=== PATIENT | male | born 1950 | race Caucasian/White ===

== ENCOUNTER 2021-02-05 18:42 | Inpatient (IN) | payer OTHER ==
[~2021-02-05] VITALS: Ht 170.2 cm; Wt 66.7 kg
[2021-02-05 19:30] VITALS: BP 141/71
--- NOTE | 2021-02-05 19:30 | NUR ---
GPS ADMISSION NOTE, RECEIVED PATIENT FROM [facility] / [place]. PATIENT ARRIVED ON THIS UNIT AT 1930 VIA STRETCHER WITH 2 EMT ESCORTS. PATIENT ADMITTED ON A 5250 HOLD FOR GD. PER HOLD, PATIENT HAS BEEN OFF HIS MEDICATION AND IS DISPLAYING COGNITIVE IMPAIRMENT. PATIENT IS CONFUSED, DISORIENTED, AND CANNOT RECALL WHEN HE LAST ATE FOOD. PATIENT IS UNABLE TO VERBALIZE A PLAN FOR SELF CARE AT THIS TIME. THE 5150 WAS REVIEWED AND THE DOCUMENTATION IN THE 5250 HOLD APPEARS TO REFLECT THE PRESENTATION OF THE PATIENT. UPON FACE TO FACE ASSESSMENT PATIENT IS NOTED TO BEING CONFUSED, DISHEVELED, DISORGANIZED, ANXIOUS, UNCOOPERATIVE, AND NEEDS REDIRECTION. PATIENT IS CURRENTLY LYING IN BED AWAKE, HAS NO S/S OR COMPLAINTS OF PAIN. PATIENT IS DISPLAYING NO S/S OF APPARENT DISTRESS. PATIENT BREATHING IS UNLABORED WITH EQUAL RISE AND FALL OF THE CHEST. PATIENT IS ALERT AND ORIENTATED X 1 ON ROOM AIR. PATIENT ASSISTED WITH TURING AND REPOSITIONING Q2HR AND PRN FOR COMFORT AND CIRCULATION. PATIENT HAS NO NEEDS AT THIS TIME. PATIENT DENIES SUICIDE IDEATIONS AND HOMICIDAL IDEATIONS AT THIS TIME. PATIENT REFUSED TO SIGNS ANY PAPER WORK AND THINKS THIS IS ALL A MISTAKE. PATIENT ADVISED OF HIS HOLD AND PATIENT RIGHTS BOOKLET GIVEN. PATIENT IS UNDER THE PSYCHIATRIC CARE OF DR. REYNA AND THE MEDICAL CARE OF DR ZAMORA. PATIENT BELONGINGS WERE INVENTORIED AND CHECKED FOR CONTRABAND. ALL CONTRABAND REMOVED AND STORED IN PATIENT HALLWAY LOCKER. PATIENT ADVANCED DIRECTIVES PREFERENCE, IMMUNIZATIONS QUESTIONER, NECESSARY PAPERWORK COMPLETED. PATIENT ALLOWED PICTURES OF LEGS ONLY DURING SKIN ASSESSMENT. PATIENT ORIENTATED TO ROOM, FLOOR, AND STAFF WITH ALL QUESTIONS ANSWERED. PATIENT EDUCATED ON THE USE OF THE CALL JEFFERS. PATIENT BED SIDE RAILS ARE UP X 2 FOR SAFETY. PATIENT BED IS LOCKED, LOW AND I WILL CONTINUE TO MONITOR THIS PATIENT Q 15 MIN WITH THE HELP OF STAFF TO MAINTAIN SAFETY.
[2021-02-05 20:00] VITALS: BP 192/101
[2021-02-05] MEDS ORDERED: TAMS-12 PO (20:07)
[2021-02-05] MEDS ORDERED: AMLO-212 PO (20:08)
[2021-02-05] MEDS ORDERED: CLON0.3T PO (20:08)
[2021-02-05] MEDS ORDERED: CEPH500C2 PO (20:10)
[2021-02-05] MEDS ORDERED: MAG HYDROX/AL HYDROX/SIMETH 30 ML UDC PO PRN (21:00)
[2021-02-05] MEDS ORDERED: ACETAMINOPHEN 325 MG TABLET PO PRN (21:00)
[2021-02-05] MEDS ORDERED: MAGNESIUM HYDROXIDE 30 ML UDC PO PRN (21:00)
[2021-02-05] MEDS ORDERED: TEMAZEPAM 7.5 MG CAPSULE PO PRN (21:00)
[2021-02-05] MEDS ORDERED: BLOOD SUGAR DIAGNOSTIC 1 EACH STRIP IN ONE (22:00)
--- NOTE | 2021-02-05 22:23 | NUR ---
GPS RN NOTE, PATIENT REFUSED TO HAVE ACCU CHECK PERFORMED. OFFERED THREE TIMES AND STILL PATIENT REFUSED STATING, " NO I DON'T HAVE DIABETES ". EDUCATED PATIENT ON THE RISKS AND BENEFITS OF DOING ACCU CHECKS. WILL CONTINUE TO MONITOR THIS PATIENT WITH THE HELP OF STAFF.
[2021-02-05] MEDS: LORAZEPAM 0.5 MG TABLET PO PRN (22:26)
--- NOTE | 2021-02-05 22:26 | NUR ---
GPS RN NOTE, PATIENT HAS A COMPLAINT OF FEELING ANXIOUS AND IS REQUESTING ATIVAN AT THIS TIME. GAVE PATIENT ATIVAN 0.5MG PO Q6HR PRN ORDERED. WILL REASSESS FOR ANXIETY AND I WILL CONTINUE TO MONITOR THIS PATIENT WITH THE HELP OF STAFF.
[2021-02-06] MEDS ORDERED: CLONIDINE HCL 0.1 MG TABLET PO ONE ×2 (01:00→01:30)
[2021-02-06] MEDS ORDERED: CLONIDINE HCL 0.1 MG TABLET PO SCH ×2 (05:00→09:00)
[2021-02-06] MEDS ORDERED: CEPHALEXIN MONOHYDRATE 500 MG CAPSULE PO SCH ×2 (05:00→08:00)
[2021-02-06 08:00] VITALS: BP 137/77
[2021-02-06] MEDS: CEPHALEXIN MONOHYDRATE 500 MG CAPSULE PO SCH ×3 (08:28→21:32)
[2021-02-06] MEDS: AMLODIPINE BESYLATE 5 MG TABLET PO SCH (08:29)
[2021-02-06] MEDS: CLONIDINE HCL 0.1 MG TABLET PO SCH ×3 (08:29→21:33)
[2021-02-06 09:36] LABS: BASOPHILS % (AUTO) 0.3 % (0.0-2.0); EOSINOPHILS % (AUTO) 2.5 % (0.0-6.0); HEMATOCRIT 33 % (39-51); HEMOGLOBIN 11.2 g/dL (13.5-17.5); LYMPHOCYTES # (AUTO) 1.1 K/uL (0.8-4.8); LYMPHOCYTES % (AUTO) 24.5 % (20.0-44.0); MEAN CORPUSCULAR HGB CONC 34 g/dl (31.0-36.0); MEAN CORPUSCULAR VOLUME 96 fL (80-96); MONOCYTES # (AUTO) 0.3 K/uL (0.1-1.30); MONOCYTES % (AUTO) 7.6 % (2.0-12.0); NEUTROPHILS # (AUTO) 2.9 K/uL (1.8-8.9); NEUTROPHILS % (AUTO) 65.1 % (43.0-81.0); PLATELET COUNT (AUTO) 157 K/uL (150-450); RED BLOOD CELL COUNT(AUTO) 3.47 MIL/uL (4.5-6.0); WHITE BLOOD COUNT (AUTO) 4.4 K/uL (4.3-11.0)
[2021-02-06 09:50] LABS: CALCIUM, SERUM 7.9 mg/dL (8.5-10.1); CARBON DIOXIDE 26 mmol/L (21-32); CHLORIDE 108 mmol/L (98-107); CREATININE 2.7 mg/dL (0.6-1.3); GLUCOSE 184 mg/dL (74-106); POTASSIUM 4.8 mmol/L (3.5-5.1); SODIUM SERUM 141 mmol/L (136-145); UREA NITROGEN, BLOOD 66 mg/dL (7-18)
--- NOTE | 2021-02-06 09:52 | NUR ---
Treatment Plan: Pt refused to sign and was suspicious of this journalists and other writers.
--- NOTE | 2021-02-06 09:52 | NUR ---
KATHERYN Initial Discharge Plan: Per records, states that pt was from a [facility] and [facility], unable to find any information. Pt will require placement or penitentiary. Pt does not have any support or contact information. KATHERYN will coordinate with the MD and treatment team.
[2021-02-06 09:57] LABS: CHOLESTEROL 127 mg/dL (<200); HDL CHOLESTEROL 50 mg/dL (40-60); LDL 63 mg/dL (0-99); TRIGLYCERIDES 52 mg/dL (30-150)
--- NOTE | 2021-02-06 10:13 | NUR ---
UR Note: Irene Waite. the Orchid Worker. with [facility] assigned. Auth# [id number]. 3 days approved. Direct line is ([phone]). Per intake, Alex.
--- NOTE | 2021-02-06 10:15 | NUR ---
UR Note: Irene Waite. the Game Design Instructor. with [facility] assigned. Auth# [id number]. 3 days approved. Direct line is ([phone]). SW left a voicemail of days approved and when next review will be.
--- NOTE | 2021-02-06 11:23 | NUR ---
RN-NOTES PATIENT REFUSED MRSA SWAB DESPITE EXPLANATIONS RISK AND BENEFITS BUT PATIENT GETS ANGRY AND IRRITABLE.
--- NOTE | 2021-02-06 14:01 | NUR ---
UR Note: Irene Waite. the Machine Chocolate Molder. with [facility] assigned. Auth# [id number], ([phone]) who left this SW a voicemail that pt is authorized until with review due on Friday 02/09.
[2021-02-06 16:00] VITALS: BP 148/83
[2021-02-06 19:43] VITALS: BP 132/67
[2021-02-06 19:53] VITALS: BP 132/67
--- NOTE | 2021-02-06 20:41 | NUR ---
RN NOTE CALLED LAB TO REMIND TO RENTAL SALES ASSOCIATE URINE SPECIMEN FOR THIS PATIENT. SURVEY RESEARCH ANALYST STATED THAT SHE WILL SEND SOMEONE.
--- NOTE | 2021-02-06 20:43 | NUR ---
RN NOTE URINE SPECIMEN PICKED UP BY THE LAB PERSON.
[2021-02-06 20:54] LABS: BILIRUBIN,URINE NEGATIVE (NEGATIVE); COLOR,URINE YELLOW (YELLOW); LEUKOCYTE ESTERASE ,URINE NEGATIVE (NEGATIVE); NITRITE, URINE NEGATIVE (NEGATIVE); PROTEIN,URINE 100 mg/dl (NEGATIVE); UGLUCOSE NEGATIVE (NEGATIVE); UROBILINOGEN,URINE 0.2 EU/dL (0.2)
[2021-02-06 21:01] LABS: BACTERIA,URINE None seen /HPF (None Seen); RBC,URINE 51-80 /HPF (0-2); SQUAMOUS EPITHELIAL CELL,UR 0-2 /HPF (None Seen); WBC,URINE 0-2 /HPF (0-3)
[2021-02-06] MEDS: TAMSULOSIN 0.4 MG CAP.SR.24H PO SCH (21:36)
[2021-02-06 21:48] LABS: CREATININE, URINE 87.6 MG/DL (30.0-125.0); URINE TOTAL PROTEIN 114.3 mg/dL (0-11.9)
[2021-02-07] MEDS: CEPHALEXIN MONOHYDRATE 500 MG CAPSULE PO SCH ×3 (05:23→21:41)
[2021-02-07] MEDS: CLONIDINE HCL 0.1 MG TABLET PO SCH ×3 (05:23→21:40)
[2021-02-07 08:00] VITALS: BP 143/77
[2021-02-07] MEDS: AMLODIPINE BESYLATE 5 MG TABLET PO SCH (08:16)
--- NOTE | 2021-02-07 08:38 | NUR ---
Received an order from Dr. Lockett of Haldol 0.5 mg po QID and Remeron 15 mg po HS.
[2021-02-07] MEDS: HALOPERIDOL 1 MG TABLET PO SCH ×4 (09:08→21:40)
--- NOTE | 2021-02-07 14:54 | NUR ---
Pt. refused labs at this time.
[2021-02-07 16:00] VITALS: BP 126/59
[2021-02-07 20:08] VITALS: BP 128/78
[2021-02-07] MEDS: LORAZEPAM 0.5 MG TABLET PO PRN (21:40)
[2021-02-07] MEDS: TAMSULOSIN 0.4 MG CAP.SR.24H PO SCH (21:40)
[2021-02-07] MEDS: MIRTAZAPINE 15 MG TABLET PO SCH (21:40)
[2021-02-08] MEDS: CEPHALEXIN MONOHYDRATE 500 MG CAPSULE PO SCH ×3 (05:09→21:39)
[2021-02-08] MEDS: CLONIDINE HCL 0.1 MG TABLET PO SCH ×3 (05:12→21:40)
[2021-02-08 08:00] VITALS: BP 152/83
[2021-02-08] MEDS: HALOPERIDOL 1 MG TABLET PO SCH ×4 (08:12→21:39)
[2021-02-08] MEDS: AMLODIPINE BESYLATE 5 MG TABLET PO SCH (08:12)
[2021-02-08 16:00] VITALS: BP 158/85
[2021-02-08 20:57] VITALS: BP 162/83
[2021-02-08] MEDS: TAMSULOSIN 0.4 MG CAP.SR.24H PO SCH (21:39)
[2021-02-08] MEDS: MIRTAZAPINE 15 MG TABLET PO SCH (21:39)
--- NOTE | 2021-02-08 21:51 | NUR ---
GPS RN NOTES: HALDOL 0.5MG PARTIAL DOSE WASTED. WITNESSED BY STAFF.
[2021-02-09] MEDS: CEPHALEXIN MONOHYDRATE 500 MG CAPSULE PO SCH ×3 (05:30→20:40)
[2021-02-09] MEDS: CLONIDINE HCL 0.1 MG TABLET PO SCH ×3 (05:30→21:00)
[2021-02-09 08:00] VITALS: BP 126/70
--- NOTE | 2021-02-09 09:07 | NUR ---
KATHERYN Coordination of Care: SW sent clinicals to [facility] for placement option.
[2021-02-09] MEDS: HALOPERIDOL 1 MG TABLET PO SCH ×4 (09:40→20:40)
[2021-02-09] MEDS: AMLODIPINE BESYLATE 5 MG TABLET PO SCH (09:41)
--- NOTE | 2021-02-09 11:24 | NUR ---
Court Hearing: Patient's court hearing for 8920 was today and it was upheld for GD.
[2021-02-09 11:33] LABS: BASOPHILS % (AUTO) 0.3 % (0.0-2.0); EOSINOPHILS % (AUTO) 2.3 % (0.0-6.0); HEMATOCRIT 32 % (39-51); HEMOGLOBIN 10.6 g/dL (13.5-17.5); LYMPHOCYTES % (AUTO) 22.8 % (20.0-44.0); MEAN CORPUSCULAR HGB CONC 33 g/dl (31.0-36.0); MEAN CORPUSCULAR VOLUME 96 fL (80-96); MONOCYTES # (AUTO) 0.5 K/uL (0.1-1.30); NEUTROPHILS # (AUTO) 2.8 K/uL (1.8-8.9); NEUTROPHILS % (AUTO) 63.6 % (43.0-81.0); PLATELET COUNT (AUTO) 148 K/uL (150-450); RED BLOOD CELL COUNT(AUTO) 3.32 MIL/uL (4.5-6.0); WHITE BLOOD COUNT (AUTO) 4.4 K/uL (4.3-11.0)
[2021-02-09 12:30] LABS: CALCIUM, SERUM 8.1 mg/dL (8.5-10.1); CARBON DIOXIDE 23 mmol/L (21-32); CHLORIDE 109 mmol/L (98-107); CREATININE 2.8 mg/dL (0.6-1.3); GLUCOSE 78 mg/dL (74-106); MAGNESIUM 2.7 mg/dL (1.8-2.4); PHOSPHORUS 3.8 mg/dL (2.5-4.9); SODIUM SERUM 141 mmol/L (136-145); UREA NITROGEN, BLOOD 66 mg/dL (7-18)
--- NOTE | 2021-02-09 12:47 | NUR ---
UR Note: Irene Waite. the Mailing Machine Helper. with [facility] assigned. Auth# [id number], ([phone]) and left a detailed voicemail of pt's clinicals. SW requested hard copy of authorization.
--- NOTE | 2021-02-09 15:12 | NUR ---
UR Note: Irene Waite. the Land Leasing Information Clerk. with [facility] assigned. Auth# [id number], ([phone]) and left a voicemail to contact this SW to see how many days pt is authorized for.
[2021-02-09 16:00] VITALS: BP 149/72
[2021-02-09 19:32] VITALS: BP 122/66
[2021-02-09] MEDS: MIRTAZAPINE 15 MG TABLET PO SCH (21:15)
[2021-02-09] MEDS: TAMSULOSIN 0.4 MG CAP.SR.24H PO SCH (21:15)
--- NOTE | 2021-02-09 21:24 | NUR ---
GPS RN NOTES: PATIENT REFUSED 2100 CLONIDINE 0.1MG/1TAB PO ORDERED. BP122/66, P64. WILL CONTINUE TO MONITOR.
--- NOTE | 2021-02-09 21:29 | NUR ---
GPS RN NOTES: HALDOL 0.5MG PARTIAL DOSE WASTED PER ORDER. WITNESSED BY STAFF.
--- NOTE | 2021-02-10 00:42 | NUR ---
GPS RN NOTES: PATIENT C/O NAUSEA AND WAS ALSO ASKING FOR INHALER. V/S BP158/88, P56 O2 SAT 99%. DR FIELD INFORMED OF PATIENT COMPLAINS, WHO ASKED THAT PATIENT BE MONITORED FOR NOW THAT IT COULD BE A PSYCH ISSUE.
[2021-02-10] MEDS: CEPHALEXIN MONOHYDRATE 500 MG CAPSULE PO SCH ×3 (05:00→21:30)
[2021-02-10] MEDS: CLONIDINE HCL 0.1 MG TABLET PO SCH ×3 (05:00→21:29)
--- NOTE | 2021-02-10 05:25 | NUR ---
GPS RN NOTES: PATIENT REFUSED 0500 KEFLEX 500MG AND CLONIDINE 0.1MG D/T NAUSEA. PER PATIENT "I DON'T WANT ANY MEDICATION RIGHT NOW, MY STOMACH DON'T FELL RIGHT". WILL CONTINUE TO MONITOR.
[2021-02-10 08:00] VITALS: BP 148/59
[2021-02-10] MEDS: HALOPERIDOL 1 MG TABLET PO SCH ×4 (08:17→21:29)
[2021-02-10] MEDS: AMLODIPINE BESYLATE 5 MG TABLET PO SCH (08:22)
[2021-02-10 15:36] VITALS: BP 114/59
--- NOTE | 2021-02-10 19:30 | NUR ---
GPS RN NOTE, RECEIVED PATIENT AWAKE AND IN BED, NO S/S OR COMPLAINTS OF PAIN AT THIS TIME. PATIENT IS DISPLAYING NO S/S OF APPARENT DISTRESS AT THIS TIME. PATIENT BREATHING IS UNLABORED WITH EQUAL RISE AND FALL OF THE CHEST. PATIENT IS ALERT AND ORIENTED X 2 ON ROOM AIR WITH A SPO2 96%. PATIENT IS COMPLIANT WITH MEDICATIONS, GUARDED, PASSIVE, UNCOOPERATIVE AT TIMES, AND NEEDS REDIRECTION. PATIENT DENIES SUICIDAL AND HOMICIDAL IDEATIONS AT THIS TIME. PATIENT ASSISTED WITH TURNING AND REPOSITIONING Q2HR AND PRN FOR COMFORT AND CIRCULATION. PATIENT HAS NO NEEDS AT THIS TIME. PATIENT EDUCATED ON THE USE OF THE CALL JEFFERS. PATIENT BED SIDE RAILS UP X 2 FOR SAFETY. PATIENT BED IS LOCKED, LOW, WITH BED ALARM ON. WILL CONTINUE TO MONITOR THIS PATIENT Q15 MINUTES WITH THE HELP OF STAFF TO MAINTAIN SAFETY.
[2021-02-10 20:00] VITALS: BP 149/62
[2021-02-10] MEDS: TAMSULOSIN 0.4 MG CAP.SR.24H PO SCH (21:27)
[2021-02-10] MEDS: MIRTAZAPINE 15 MG TABLET PO SCH (21:30)
[2021-02-11] MEDS: CLONIDINE HCL 0.1 MG TABLET PO SCH ×3 (05:37→21:00)
[2021-02-11] MEDS: CEPHALEXIN MONOHYDRATE 500 MG CAPSULE PO SCH ×3 (05:38→21:18)
[2021-02-11 08:00] VITALS: BP 115/63
[2021-02-11] MEDS: HALOPERIDOL 1 MG TABLET PO SCH ×4 (08:27→16:45)
[2021-02-11] MEDS: AMLODIPINE BESYLATE 5 MG TABLET PO SCH ×2 (08:27→09:00)
--- NOTE | 2021-02-11 08:48 | NUR ---
UR Note: AUTH# [id number]. Per intake Alex, REGARDING DAYS APPROVED. TWO MORE DAYS HAVE BEEN ADDED AND THE HAVE BEEN APPROVED WITH REVIEW DUE ON February. KATHERYN contacted EVELYN Bucio ([phone]) and left a detailed voicemail of pt's clinicals.
[2021-02-11 16:00] VITALS: BP 149/78
[2021-02-11 19:55] VITALS: BP 142/72
[2021-02-11 20:00] VITALS: BP 142/72
[2021-02-11] MEDS: TAMSULOSIN 0.4 MG CAP.SR.24H PO SCH (21:15)
--- NOTE | 2021-02-11 21:28 | NUR ---
RN NOTE: PATIENT'S BLOOD PRESSURE IS 108/58, 54, 18, 100% AT ROOM AIR, PATIENT REFUSED TO TAKE SCHEDULED CLONIDINE AT THIS TIME, PER PATIENT," MY BLOOD PRESSURE IS LOW AND I DON'T WANT TO TAKE BLOOD PRESSURE MEDICINE." PATIENT S WATCHING TV AT THIS TIME. NO ACUTE DISTRESS NOTED. WILL CONTINUE TO MONITOR.
[2021-02-11] MEDS: MIRTAZAPINE 15 MG TABLET PO SCH (21:54)
[2021-02-12] MEDS: CLONIDINE HCL 0.1 MG TABLET PO SCH ×2 (05:19→12:52)
[2021-02-12] MEDS: CEPHALEXIN MONOHYDRATE 500 MG CAPSULE PO SCH ×2 (05:21→12:52)
--- NOTE | 2021-02-12 07:46 | NUR ---
RN-CO: DR REYNA GAVE AN ORDER TO DISCONTINUE HOLD AND DISCHARGE PATIENT TO [facility]. NOTED.
[2021-02-12 08:00] VITALS: BP 149/76
--- NOTE | 2021-02-12 08:03 | NUR ---
UR Note: AUTH# [id number]. Authorized for 02/12, per EVELYN Bucio ([phone]).
--- NOTE | 2021-02-12 08:47 | NUR ---
Transportation: KATHERYN contacted patient's insurance ([phone]) and spoke with hat brim and crown laminating operator Valarie (reference #[id number]) who scheduled transportation at 12PM. KATHERYN advised route driver salesperson to contact [facility] before pt being released. Valarie stated she will advise the route driver salesperson.
--- NOTE | 2021-02-12 08:48 | NUR ---
Discharge Note: Patient will be discharged to [facility] facility [facility] [address], [place] [address]; ). scheduled transportation through [employer] insurance ([phone]) between 12PM. Sighter spoke with Rios insulation sprayer at [facility]; ([phone], who stated patient will be accepted today. Patient does not have any family to contact. Patient is alert and oriented x3 and is unable to plan for self-care. Patient denies any suicidal or homicidal ideations. Patient is aware and agreeable with discharge plans. Patient will continue to follow-up with (psychiatrist) Dr. Lockett located at [address] [place] [id number]; ([phone]) and (locomotive driver) Dr. Mercado [address], [place] [address]; ([phone]). Patient refused to sign the homeless waiver upon discharge and a copy was placed in the chart. Homeless resources were provided and include 211 information line for shelters and homeless resources. A copy of all resources given to patient was also placed in the chart. Patient presents with euthymic mood and congruent affect. Patient presents with euthymic and congruent mood.
[2021-02-12] MEDS: HALOPERIDOL 1 MG TABLET PO SCH ×2 (09:17→12:52)
[2021-02-12] MEDS: AMLODIPINE BESYLATE 5 MG TABLET PO SCH (09:18)
--- NOTE | 2021-02-12 11:27 | NUR ---
Transportation: SW contacted patient's insurance ([phone]) and spoke with engraving supervisor Regina who stated they are assigning a substitute bus driver. KATHERYN advised for substitute bus driver to contact the nursing facility when pt arrives to help pt go inside the facility. Regina noted this.
--- NOTE | 2021-02-12 12:34 | NUR ---
UR Note: AUTH# [id number]. Spoke with casework supervisor EVELYN Bucio ([phone]) and she stated she is unable to help with transportation.
[2021-02-12 12:52] VITALS: BP 143/71
--- NOTE | 2021-02-12 14:00 | NUR ---
RN-DISCHARGE NOTES PATIENT HAD A DISCHARGE ORDER FROM DR. REYNA, DR. PICKARD MEDICALLY CLEARED PATIENT FOR DISCHARGE. PATIENT DID NOT VERBALIZE SI/HI,DENIES VISUAL/AUDITORY HALLUCINATIONS AT THE TIME OF DISCHARGE.REPORT WAS GIVEN TO EMMANUEL STOVERN STAFF AT [facility].PATIENT REFUSED FULL BODY ASSESSMENT AND REFUSED TO SIGN ALL DISCHARGE PAPERS. OFFERED FLU VACCINE BUT REFUSED. PATIENT LEFT THE UNIT IN STABLE CONDITION A/O X3 WITH ALL BELONGINGS INCLUDING $1,226.00 [place]. PATIENT WAS WHEELED DOWN IN THE LOBBY FOR SAFETY,STAMPING DIE MAKER BENCH BY AMBULANCE.NO FAMILY TO NOTIFY.
--- NOTE | 2021-02-16 12:27 | NUR ---
Incubator Machine Operator: KATHERYN received a call from caseworker intake Renzo ([phone]) Ext:[phone] and requested where pt went. KATHERYN notified pt is at [facility].
== END 2021-02-12 14:00 | DRG 885 ==
LOC: GPS 18:42
PROVIDERS: ADMIT Psychiatry & Neurology Psychiatry; ATTEND Registered Nurse
DX: F25.9 Schizoaffective disorder, unspecified (principal); N18.4 Chronic kidney disease, stage 4 (severe); N39.0 Urinary tract infection, site not specified; F29 Unspecified psychosis not due to a substance or known physiological condition; F41.9 Anxiety disorder, unspecified; F03.90 Unspecified dementia, unspecified severity, without behavioral disturbance, psychotic disturbance, mood disturbance, and anxiety; I12.9 Hypertensive chronic kidney disease with stage 1 through stage 4 chronic kidney disease, or unspecified chronic kidney disease; N40.1 Benign prostatic hyperplasia with lower urinary tract symptoms; Z59.00 Homelessness unspecified; Z20.822 Contact with and (suspected) exposure to COVID-19
CPT/HCPCS: 36415; 76770-TC; 80048-TC; 80061-TC; 81001; 82570-TC; 83735-TC; 84100-TC; 84155-TC; 84300-TC; 84443-TC; 85025-TC; 87081-TC; 97116-TC; 97530-TC